=== PATIENT | male | born 1985 | race Caucasian/White ===

== ENCOUNTER 2021-02-28 02:40 | Inpatient (IN) | payer BC ==
[2021-02-28] MEDS ORDERED: Lidocaine 1% (PF) 30 ML VIAL ONE (02:51)
[2021-02-28] MEDS ORDERED: Fentanyl 100 MCG/2 ML VIAL ONE ×2 (03:08→03:11)
[2021-02-28] MEDS ORDERED: CEFAZOLIN 1 GM VIAL ONE (03:19)
[2021-02-28] MEDS ORDERED: Boostrix 0.5 ML (Tdap) VIAL ONE (03:19)
[2021-02-28 03:31] LABS: Hemoglobin 13.3 g/dL (14.0-18.0); Mean Corpuscular HGB CONC 32.6 g/dL (32.0-36.0); Mean Corpuscular Hemoglobin 31.3 pg (27.0-31.0); RBC Distribution Width 11.7 % (11.5-14.5); Red Blood Cell (RBC) Count 4.25 mill/uL (4.70-6.10); White Blood Cell (WBC) Count 16.1 thou/uL (4.8-10.8)
[2021-02-28 03:34] LABS: ALT (SGPT) 34 U/L (8-55); AST (SGOT) 24 U/L (5-34); Albumin 3.5 g/dL (3.5-5.0); Alkaline Phosphatase 59 U/L (40-110); Anion Gap 15 mmol/L (10-20); BUN (Urea Nitrogen) 24 mg/dL (8.9-20.6); Bilirubin, Total 0.3 mg/dL (0.2-1.2); Calc. Creatinine Clearance 0 mL/min (70-130); Calcium 8.2 mg/dL (7.8-10.44); Carbon Dioxide 20 mmol/L (22-29); Chloride 109 mmol/L (98-107); Glucose 117 mg/dL (70-105); Potassium 3.9 mmol/L (3.5-5.1); Protein, Total 5.5 g/dL (6.0-8.3); Sodium 140 mmol/L (136-145)
[2021-02-28 03:41] LABS: #Basophils 0.1 thou/uL (0.0-0.2); #Eosinphils 0.1 thou/uL (0.0-0.7); %Basophils 0.4 % (0.0-1.0); %Eosinophils 0.4 % (0.0-10.0); %Lymphocytes 12.7 % (21.0-51.0); %Neutrophils 80.5 % (42.0-75.0); Platelet Count 96 thou/uL (130-400); Platelet Morphology Comment Appears Decreased; RBC Morphology Normal
[2021-02-28] MEDS ORDERED: Dextrose 50% Abboject 50 ML SYRINGE SLOW IVP PRN ×2 (04:09→07:27)
[2021-02-28] MEDS ORDERED: hydrALAZINE 20 MG/ML VIAL SLOW IVP PRN ×2 (04:09→07:27)
[2021-02-28] MEDS ORDERED: Ondansetron PF 4 MG/2 ML Vial IVP PRN ×4 (04:09→10:42)
[2021-02-28] MEDS ORDERED: Dextrose 5% in Water 1,000 ML IV PRN ×2 (04:09→07:27)
[2021-02-28 04:13] LABS: INR-International Normal Ratio 1.2; PTT 25.3 sec (22.9-36.1); Prothrombin Time 15.6 sec (12.0-14.7)
[2021-02-28] MEDS ORDERED: traMADol HCl 50 MG TAB PO PRN ×2 (04:13→07:27)
[2021-02-28] MEDS ORDERED: Morphine 2 MG/ML VIAL SLOW IVP PRN ×2 (04:13→07:27)
[2021-02-28] MEDS ORDERED: Acetaminophen 325 MG TAB PO SCH (04:15)
[2021-02-28] MEDS ORDERED: Ketamine 50 MG/ML (10ML VIAL) ONE (04:23)
[2021-02-28 04:29] LABS: Alcohol Less than 10 mg/dL (Less than 10); CK (CPK) 372 U/L (30-200)
[2021-02-28] MEDS ORDERED: Lactated Ringer's 1,000 ML IV SCH (04:30)
[2021-02-28 05:22] LABS: Lactic Acid 4.5 mmol/L (0.5-2.2)
[2021-02-28 05:49] LABS: Hemoglobin 13.5 g/dL (14.0-18.0)
[2021-02-28] MEDS ORDERED: traMADol HCl 50 MG TAB PO SCH ×2 (06:00→06:30)
[2021-02-28 06:02] LABS: SARS-CoV-2 NAA Rapid Test Not Detected (NotDetected)
[2021-02-28] MEDS ORDERED: Midazolam HCl 2 mg/2 ml Vial ONE (06:07)
[2021-02-28] MEDS ORDERED: Fentanyl 250 MCG/5 ML VIAL ONE (06:07)
[2021-02-28] MEDS ORDERED: Ondansetron PF 4 MG/2 ML Vial ONE (06:13)
[2021-02-28] MEDS ORDERED: Lidocaine 1.5% w/Epi 1:200K 30 ML VIAL (Epid Use) ONE (06:27)
[2021-02-28] MEDS ORDERED: PROPOFOL 200 MG/20 ML VIAL ONE (06:27)
[2021-02-28] MEDS ORDERED: Succinylcholine 200 MG/10 ml SYRINGE FS ONE (06:27)
[2021-02-28] MEDS ORDERED: Glycopyrrolate 0.2 MG/ML 5 ML SYRINGE ONE (06:27)
[2021-02-28] MEDS ORDERED: Lidocaine 1% PF 5 ML VIAL ONE (06:27)
[2021-02-28] MEDS ORDERED: PHENYLEPHRINE-NS 100 MCG/ML 10 ML SYRINGE ONE (06:27)
[2021-02-28] MEDS ORDERED: Rocuronium Bromide 10 MG/ML (10ML VIAL) ONE (06:27)
[2021-02-28] MEDS ORDERED: Bupivacaine 0.25% HCL 30 ML VIAL ONE (08:15)
[2021-02-28] MEDS ORDERED: Promethazine HCl 25 MG/ML VIAL IM PRN ×2 (08:45→10:42)
[2021-02-28] MEDS ORDERED: diphenhydrAMINE 50 MG/ML VIAL IVP PRN ×2 (08:45→10:42)
[2021-02-28] MEDS ORDERED: HYDROcodone/Acetaminophen 5/325 mg Tablet PO PRN ×2 (08:45)
[2021-02-28] MEDS ORDERED: diphenhydrAMINE 50 MG/ML VIAL IM PRN ×2 (08:45→10:42)
[2021-02-28] MEDS ORDERED: Ketorolac Tromethamine 30 MG/ML VIAL IVP PRN ×2 (08:45→10:42)
[2021-02-28] MEDS ORDERED: Bupivacaine 0.25% 10 ML VIAL EPIDURAL PRN (08:45)
[2021-02-28] MEDS ORDERED: Fentanyl 5 mcg/Bup 0.075% Cadd 100 ML EPIDURAL SCH (08:45)
[2021-02-28] MEDS ORDERED: Hydrocerin (Eucerin) Cream 120 gm Jar TOP PRN (08:45)
[2021-02-28] MEDS ORDERED: diphenhydrAMINE 25 MG CAP PO PRN (08:45)
[2021-02-28] MEDS ORDERED: Naloxone HCl 0.4 mg/ml Vial IV PRN ×2 (08:45→10:42)
[2021-02-28] MEDS ORDERED: Promethazine HCl 25 MG SUPP PR PRN (08:45)
[2021-02-28] MEDS ORDERED: Naloxone HCl 0.4 mg/ml Vial IVP PRN (08:45)
[2021-02-28] MEDS ORDERED: Zolpidem Tartrate 5 MG TAB PO PRN ×2 (08:45→10:42)
[2021-02-28] MEDS ORDERED: Famotidine/PF 20 mg/2ml Vial SLOW IVP SCH (09:00)
[2021-02-28] MEDS ORDERED: Gabapentin 300 MG CAP PO SCH ×2 (09:00)
[2021-02-28] MEDS: Gabapentin 100 MG CAP PO SCH ×3 (09:58→21:01)
[2021-02-28] MEDS: Lactated Ringer's 1,000 ML IV SCH ×3 (09:59→23:53)
[2021-02-28] MEDS: Famotidine/PF 20 mg/2ml Vial SLOW IVP SCH ×2 (09:59→21:01)
[2021-02-28] MEDS: Acetaminophen 325 MG TAB PO SCH ×4 (10:00→23:52)
[2021-02-28 10:09] VITALS: BMI 32.1
[2021-02-28] MEDS ORDERED: fentaNYL Citrate/PF 2,000 MCG in Sodium Chloride 0.9% 60 ML IV PRN (10:42)
[2021-02-28] MEDS ORDERED: Communication Order-Pharmacy FS SCH (10:45)
[2021-02-28 11:05] LABS: INR-International Normal Ratio 1.1; PTT 22.9 sec (22.9-36.1); Prothrombin Time 14.8 sec (12.0-14.7)
[2021-02-28] MEDS ORDERED: Fentanyl CADD 100 ML ONE (11:12)
[2021-02-28] MEDS ORDERED: Iopamidol-370 76% 500 ML 1 ML ONE (12:44)
[2021-02-28] MEDS: CEFAZOLIN 2 GM in Premix Bag 1 BAG IVPB SCH ×2 (14:06→21:02)
[2021-02-28] MEDS: diphenhydrAMINE 25 MG CAP PO PRN (21:02)
[2021-03-01 04:10] LABS: Phosphorus 2.4 mg/dL (2.3-4.7)
[2021-03-01 04:12] LABS: Anion Gap 10 mmol/L (10-20); BUN (Urea Nitrogen) 18 mg/dL (8.9-20.6); CK (CPK) 3641 U/L (30-200); Calc. Creatinine Clearance 135 mL/min (70-130); Calcium 7.7 mg/dL (7.8-10.44); Carbon Dioxide 25 mmol/L (22-29); Chloride 103 mmol/L (98-107); Glucose 95 mg/dL (70-105); Magnesium 1.7 mg/dL (1.6-2.6); Potassium 3.8 mmol/L (3.5-5.1); Sodium 134 mmol/L (136-145)
[2021-03-01] MEDS: diphenhydrAMINE 25 MG CAP PO PRN ×2 (04:23→19:37)
[2021-03-01 04:59] LABS: #Lymphocytes 1.6 thou/uL (1.20-3.40); #Monocytes 0.9 thou/uL (0.11-0.59); #Neutrophils 7.3 thou/uL (1.40-6.50); %Basophils 0.3 % (0.0-1.0); %Eosinophils 0.3 % (0.0-10.0); %Lymphocytes 16.4 % (21.0-51.0); %Monocytes 8.9 % (0.0-10.0); %Neutrophils 74.1 % (42.0-75.0); Hemoglobin 10.5 g/dL (14.0-18.0); Mean Corpuscular HGB CONC 32.3 g/dL (32.0-36.0); Mean Corpuscular Volume 95.9 fL (78.0-98.0); Mean Platelet Volume 9.9 fL (7.4-10.4); Platelet Count 75 thou/uL (130-400); RBC Distribution Width 11.8 % (11.5-14.5); Red Blood Cell (RBC) Count 3.37 mill/uL (4.70-6.10); White Blood Cell (WBC) Count 9.9 thou/uL (4.8-10.8)
[2021-03-01] MEDS ORDERED: Magnesium 2 GM/50 ML 2 GM in Premix Bag 1 BAG IVPB SCH ×2 (05:45→14:15)
[2021-03-01] MEDS: Acetaminophen 325 MG TAB PO SCH ×2 (06:09→12:00)
[2021-03-01] MEDS: CEFAZOLIN 2 GM in Premix Bag 1 BAG IVPB SCH ×2 (06:10→15:29)
[2021-03-01] MEDS: Gabapentin 300 MG CAP PO SCH ×2 (07:57→21:19)
[2021-03-01] MEDS: Famotidine/PF 20 mg/2ml Vial SLOW IVP SCH ×2 (07:57→21:19)
[2021-03-01] MEDS ORDERED: Potassium Phosphate 30 MMOL in Sodium Chloride 0.9% 250 ML 250 ML IVPB SCH (14:15)
[2021-03-01] MEDS: Acetaminophen 500 MG TAB PO SCH (17:33)
[2021-03-01] MEDS: Ibuprofen 200 MG TAB PO SCH (21:18)
[2021-03-02] MEDS: Acetaminophen 500 MG TAB PO SCH ×4 (00:03→18:19)
[2021-03-02] MEDS ORDERED: Oxazepam 10 MG CAP PO SCH ×2 (02:30→14:00)
[2021-03-02] MEDS ORDERED: Lactated Ringer's 500 ML IV SCH (04:57)
[2021-03-02] MEDS: traMADol HCl 50 MG TAB PO SCH ×3 (05:59→18:18)
[2021-03-02] MEDS: Ibuprofen 200 MG TAB PO SCH (06:00)
[2021-03-02] MEDS: Lactated Ringer's 1,000 ML IV SCH (06:02)
[2021-03-02] MEDS ORDERED: Lorazepam 2 MG/ML VIAL SLOW IVP SCH ×2 (06:30→07:00)
[2021-03-02 06:56] LABS: #Basophils 0.1 thou/uL (0.0-0.2); #Eosinphils 0.1 thou/uL (0.0-0.7); #Lymphocytes 1.5 thou/uL (1.20-3.40); #Monocytes 0.6 thou/uL (0.11-0.59); #Neutrophils 4.1 thou/uL (1.40-6.50); %Basophils 0.8 % (0.0-1.0); %Eosinophils 1.7 % (0.0-10.0); %Lymphocytes 24.2 % (21.0-51.0); %Monocytes 8.6 % (0.0-10.0); %Neutrophils 64.7 % (42.0-75.0); Hemoglobin 8.9 g/dL (14.0-18.0); Mean Corpuscular Hemoglobin 32.1 pg (27.0-31.0); Mean Corpuscular Volume 94.6 fL (78.0-98.0); Mean Platelet Volume 9.8 fL (7.4-10.4); Platelet Count 66 thou/uL (130-400); RBC Distribution Width 11.5 % (11.5-14.5); Red Blood Cell (RBC) Count 2.76 mill/uL (4.70-6.10); White Blood Cell (WBC) Count 6.4 thou/uL (4.8-10.8)
[2021-03-02 07:12] LABS: Anion Gap 9 mmol/L (10-20); BUN (Urea Nitrogen) 10 mg/dL (8.9-20.6); CK (CPK) 1862 U/L (30-200); Calc. Creatinine Clearance 159 mL/min (70-130); Calcium 7.4 mg/dL (7.8-10.44); Carbon Dioxide 26 mmol/L (22-29); Chloride 107 mmol/L (98-107); Glucose 93 mg/dL (70-105); Phosphorus 2.7 mg/dL (2.3-4.7); Potassium 3.8 mmol/L (3.5-5.1); Sodium 138 mmol/L (136-145)
[2021-03-02] MEDS: Polyethylene Glycol 3350 17 GM Packet PO SCH (08:58)
[2021-03-02] MEDS: Senokot S 8.6-50 MG TAB PO SCH ×2 (08:59→20:50)
[2021-03-02] MEDS: Famotidine/PF 20 mg/2ml Vial SLOW IVP SCH ×2 (08:59→20:49)
[2021-03-02] MEDS: Gabapentin 300 MG CAP PO SCH ×3 (09:00→20:50)
[2021-03-02] MEDS: Ketorolac Tromethamine 30 MG/ML VIAL IVP SCH ×2 (10:24→18:20)
[2021-03-02] MEDS: Cyclobenzaprine 10 MG TAB PO PRN (20:50)
[2021-03-03] MEDS: Acetaminophen 500 MG TAB PO SCH ×5 (00:40→23:05)
[2021-03-03] MEDS: Ketorolac Tromethamine 30 MG/ML VIAL IVP SCH ×5 (00:40→23:05)
[2021-03-03] MEDS: traMADol HCl 50 MG TAB PO SCH ×5 (00:40→23:06)
[2021-03-03] MEDS ORDERED: traMADol HCl 50 MG TAB PO SCH ×2 (02:15→10:00)
[2021-03-03 06:02] LABS: #Eosinphils 0.2 thou/uL (0.0-0.7); #Lymphocytes 1.1 thou/uL (1.20-3.40); #Monocytes 0.4 thou/uL (0.11-0.59); #Neutrophils 3.5 thou/uL (1.40-6.50); %Basophils 0.5 % (0.0-1.0); %Eosinophils 2.9 % (0.0-10.0); %Lymphocytes 20.9 % (21.0-51.0); %Monocytes 7.3 % (0.0-10.0); %Neutrophils 68.4 % (42.0-75.0); Hemoglobin 8.8 g/dL (14.0-18.0); Mean Corpuscular HGB CONC 32.7 g/dL (32.0-36.0); Mean Corpuscular Hemoglobin 31.3 pg (27.0-31.0); Mean Corpuscular Volume 95.6 fL (78.0-98.0); Mean Platelet Volume 9.2 fL (7.4-10.4); Platelet Count 90 thou/uL (130-400); RBC Distribution Width 11.7 % (11.5-14.5); Red Blood Cell (RBC) Count 2.81 mill/uL (4.70-6.10); White Blood Cell (WBC) Count 5.2 thou/uL (4.8-10.8)
[2021-03-03] MEDS: Gabapentin 300 MG CAP PO SCH ×3 (08:53→21:17)
[2021-03-03] MEDS: Senokot S 8.6-50 MG TAB PO SCH ×2 (08:53→21:17)
[2021-03-03] MEDS: Cyclobenzaprine 10 MG TAB PO PRN ×2 (08:54→21:26)
[2021-03-03] MEDS: Famotidine/PF 20 mg/2ml Vial SLOW IVP SCH ×2 (08:54→21:17)
[2021-03-03] MEDS: Polyethylene Glycol 3350 17 GM Packet PO SCH (08:54)
[2021-03-03] MEDS: diphenhydrAMINE 25 MG CAP PO PRN (21:22)
[2021-03-04] MEDS: Ketorolac Tromethamine 30 MG/ML VIAL IVP SCH ×4 (05:47→23:06)
[2021-03-04] MEDS: traMADol HCl 50 MG TAB PO SCH ×4 (05:47→23:06)
[2021-03-04] MEDS: Acetaminophen 500 MG TAB PO SCH ×4 (05:47→23:05)
[2021-03-04] MEDS: Cyclobenzaprine 10 MG TAB PO PRN ×2 (05:51→21:50)
[2021-03-04] MEDS: Polyethylene Glycol 3350 17 GM Packet PO SCH (07:57)
[2021-03-04] MEDS: Famotidine/PF 20 mg/2ml Vial SLOW IVP SCH ×2 (07:58→20:05)
[2021-03-04] MEDS: Senokot S 8.6-50 MG TAB PO SCH ×2 (07:58→20:05)
[2021-03-04] MEDS: Gabapentin 300 MG CAP PO SCH ×3 (07:58→20:04)
[2021-03-05] MEDS: traMADol HCl 50 MG TAB PO SCH ×2 (06:18→11:15)
[2021-03-05] MEDS: Acetaminophen 500 MG TAB PO SCH ×2 (06:18→11:14)
[2021-03-05] MEDS: Ketorolac Tromethamine 30 MG/ML VIAL IVP SCH ×2 (06:19→11:14)
[2021-03-05] MEDS: Gabapentin 300 MG CAP PO SCH ×2 (08:13→15:08)
[2021-03-05] MEDS: Polyethylene Glycol 3350 17 GM Packet PO SCH (08:13)
[2021-03-05] MEDS: Senokot S 8.6-50 MG TAB PO SCH (08:14)
[2021-03-05] MEDS: Famotidine/PF 20 mg/2ml Vial SLOW IVP SCH (08:14)
[2021-03-05 11:37] VITALS: BP 104/66; TEMP 97.7
== END 2021-03-05 14:00 | disposition home or self-care (01) | DRG 958 ==
LOC: ERS 02:40 → CCU 06:20 → SDC 06:20 → ERS 06:20 → CCU 08:57 → EEVIPCON 08:57 → SURG B 03-01 10:47
PROVIDERS: ADMIT Surgery; ATTEND Surgery
PROC: 0W380ZZ Control Bleeding in Chest Wall, Open Approach (ICD-10-PCS; principal; 2021-02-28)
PROC: 0W9900Z Drainage of Right Pleural Cavity with Drainage Device, Open Approach (ICD-10-PCS; 2021-02-28)
DX: S27.2XXA Traumatic hemopneumothorax, initial encounter (principal); S42.294 Other nondisplaced fracture of upper end of right humerus; N17.9 Acute kidney failure, unspecified; E87.1 Hypo-osmolality and hyponatremia; S27.321A Contusion of lung, unilateral, initial encounter; J98.11 Atelectasis; E83.39 Other disorders of phosphorus metabolism; E83.42 Hypomagnesemia; X95.9XXA Assault by unspecified firearm discharge, initial encounter; Z20.822 Contact with and (suspected) exposure to COVID-19
CPT/HCPCS: 29105; 32551; 36415; 36430; 71045; 71260; 74177; 80048; 80053; 80307; 82550; 83605; 83735; 84100; 85025; 85610; 85730; 86850; 86900; 86901; 90471; 90715; 93005; 93010; 96365; 96375; 99292; G0390; J0690; J1885; J2001; J2060; J2250; J2405; J2704; J3010; J3475; J3490; J7050; P9016; Q0163; Q9967; S0020; S0028; U0002

== ENCOUNTER 2021-03-24 13:29 | Outpatient (CLI) | payer BC | END 2021-03-24 13:30 | disposition home or self-care (01) | LOC: RAD 13:29 | PROVIDERS: ATTEND Thoracic Surgery (Cardiothoracic Vascular Surgery) | DX: T14.8XXA Other injury of unspecified body region, initial encounter (principal); J98.4 Other disorders of lung | CPT/HCPCS: 71046 ==